=== PATIENT | male | born 1955 | race Caucasian/White ===

== ENCOUNTER 2017-04-27 06:14 | Day surgery (SDC) | payer BC ==
[2017-04-27] VITALS (7 sets, daily range): BP systolic 98–146; BP diastolic 58–89; PULSE 59–70; RESP 18–20; TEMP 97.4–97.8; O2SAT 94–100
[~2017-04-27] VITALS: Ht 170.2 cm; Wt 82.5 kg
[~2017-04-27 06:14] MED LIST: ASPI81 PO; LORT5TAB PO; PRAS10TA PO; PRIN20TA2 PO; ZOCO40TA PO
[2017-04-27] MEDS ORDERED: PLAV75TA29 PO (06:43)
[2017-04-27] MEDS ORDERED: SODIUM CHLOR 0.9% 1000 ML IV SCH (07:00)
[2017-04-27] MEDS ORDERED: SODIUM CHLORIDE 2 ML FLUSH PRN IV FLUSH (07:00)
[2017-04-27] MEDS ORDERED: IMPLANTED VASCULAR ACCESS DEVICE/PORT - SODIUM CHLORIDE FLUSH PRN IV FLUSH (07:00)
[2017-04-27] MEDS ORDERED: IMPLANTED VASCULAR ACCESS DEVICE/PORT - SODIUM CHLORIDE FLUSH IV FLUSH SCH (07:00)
[2017-04-27 08:14] LABS: AUTOMATED NEUTROPHIL # 3.3 TH/MM3 (1.8-7.7); BASOPHIL % 0.5 % (0.0-2.0); EOSINOPHIL # 0.2 TH/MM3 (0-0.4); EOSINOPHIL % 2.9 % (0.0-4.0); HEMATOCRIT 31.2 % (39.0-51.0); LYMPH % 25.5 % (9.0-44.0); LYMPHOCYTE # 1.4 TH/MM3 (1.0-4.8); MEAN CELL VOLUME 71.7 FL (80.0-100.0); MEAN CORPUSCULAR HEMOGLOBIN 22.9 PG (27.0-34.0); MEAN PLATELET VOLUME 7.4 FL (7.0-11.0); MONO % 10.9 % (0.0-8.0); MONOCYTE # 0.6 TH/MM3 (0-0.9); NEUT % 60.2 % (16.0-70.0); PLATELET COUNT 241 TH/MM3 (150-450); RED BLOOD COUNT 4.35 MIL/MM3 (4.50-5.90); RED CELL DISTRIBUTION WIDTH 18.9 % (11.6-17.2); WHITE BLOOD COUNT 5.5 TH/MM3 (4.0-11.0)
[2017-04-27] MEDS ORDERED: MIDAZOLAM HCL 2 MG/2 ML VIAL ONE (08:15)
[2017-04-27] MEDS ORDERED: LIDOCAINE HCL 1% 20 ML VIAL ONE (08:15)
[2017-04-27 08:30] LABS: INTERNATIONAL NORMALIZED RATIO 1.1 RATIO; PROTHROMBIN TIME - PATIENT 10.7 SEC (9.8-11.6)
[2017-04-27] MEDS ORDERED: SODIUM CHLORIDE 2 ML FLUSH BID IV FLUSH SCH (09:00)
--- NOTE | 2017-04-27 13:14 | RADRPT ---
EXAM DATE/TIME: 04/27/2017 08:47 [facility] COMPARISON: CT NEEDLE BIOPSY ABDOMEN, May 09, 2015, 10:12. INDICATIONS : Abdominal mass. SEDATION TIME: 20 minutes BIOPSY SITE: Right upper quadrant. MEDICATION(S): 1.) 4 mg midazolam (Versed) IV 2.) 200 mcg fentanyl (Sublimaze) IV DEVICE(S): 1.) 18 gauge Temno core biopsy needle MEDICAL HISTORY : Carcinoma, hepatocellular. Diverticulitis. Cardiovascular disease. Hypertension. SURGICAL HISTORY : CABG Coronary artery stent. Cholecystectomy. Hepatectomy. ENCOUNTER: Initial ACUITY: 1 day PAIN SCORE: 0/10 LOCATION: Right upper quadrant A total of two core specimen(s) were obtained and sent to the laboratory for pathologic evaluation. PROCEDURE: 1. CT guided abdomen biopsy. Prior to the procedure informed consent was obtained. Any appropriate prior imaging studies were rev iewed. Using automated exposure control and adjustment of the mA and/or kV according to patient size, radiat ion dose was kept as low as reasonably achievable to obtain optimal diagnostic quality images. DICOM format image data is available electronically for review and comparison. The site was prepped in a sterile fashion. Full sterile technique was used, including cap, mask, danni rile gloves and gown and a large sterile sheet. Hand hygiene and 2% chlorhexidine and/or betadine/al cohol prep was utilized per protocol for cutaneous antisepsis. The skin and subcutaneous tissues wer e infiltrated with local anesthetic solution. With CT guidance the previously identified target was localized. Biopsy was performed using the presc ribed needle as above. Adequate hemostasis was obtained with compression at the puncture site. Follow-up CT scan reveals no hemorrhage. The patient tolerated the procedure well and there were no complications. The patient was returned to the Radiology Outpatient Unit in stable condition. CONCLUSION: Uncomplicated CT guided biopsy. Ángel Damico MD on April 27, 2017 at 13:11 Board Certified Radiologist. This report was verified electronically.
== END 2017-04-27 11:30 | disposition home or self-care (01) ==
LOC: HRAD 06:14 → HRIP 06:31 → HRAD 11:30
PROVIDERS: ATTEND Colon & Rectal Surgery
DX: R19.01 Right upper quadrant abdominal swelling, mass and lump (principal); I10 Essential (primary) hypertension; I25.10 Atherosclerotic heart disease of native coronary artery without angina pectoris; C22.9 Malignant neoplasm of liver, not specified as primary or secondary
CPT/HCPCS: 49180; 77012; 85025; 85610; 85730; 88307; 88333; 99152; 99153; J2250; J3010; 88305

== ENCOUNTER 2017-08-09 10:23 | Inpatient (IN) | payer BC ==
[~2017-08-09] VITALS: Ht 170.2 cm; Wt 81.1 kg
[~2017-08-09 10:23] MED LIST changes: +AMIT10TA6 PO; +ASPI1TAB57 PO; -ASPI81 PO; +LISI-519 PO; -LORT5TAB PO; +PLAV75TA29 PO; -PRAS10TA PO; -PRIN20TA2 PO; +SIMV40TA PO; -ZOCO40TA PO
[2017-08-09] MEDS ORDERED: LACTATED RINGER'S 1000 ML IV PRN (11:15)
[2017-08-09] MEDS ORDERED: CHLORHEXIDINE GLUCONATE 2 % 1 PACK (2 CLOTHS) TOPICAL PRN (11:15)
[2017-08-09] MEDS: DEXT 5%-NACL 0.9% 1000 ML INJ 1,000 ML IV SCH ×2 (11:15→19:15)
[2017-08-09] MEDS ORDERED: METOPROLOL TARTRATE 25 MG TAB PO PRN (11:15)
[2017-08-09] MEDS ORDERED: SODIUM CHLORID 0.9% 500 ML IV PRN (11:15)
[2017-08-09] MEDS ORDERED: ALVIMOPAN 12 MG CAPSULE - On Call PO SCH (11:15)
[2017-08-09] MEDS ORDERED: POVIDONE IODINE 5% (ANTISEPSIS KIT) 4 APPLICATIONS EACH NARE PRN (11:15)
[2017-08-09] MEDS ORDERED: METRONIDAZOLE 500 MG/100 ML ISONTONIC SOLN IV SCH (11:15)
[2017-08-09 11:39] LABS: AUTOMATED NEUTROPHIL # 5.9 TH/MM3 (1.8-7.7); BASOPHIL % 0.3 % (0.0-2.0); EOSINOPHIL # 0.1 TH/MM3 (0-0.4); EOSINOPHIL % 1.3 % (0.0-4.0); HEMATOCRIT 37.3 % (39.0-51.0); HEMOGLOBIN 12.3 GM/DL (13.0-17.0); LYMPH % 16.2 % (9.0-44.0); LYMPHOCYTE # 1.4 TH/MM3 (1.0-4.8); MEAN CELL VOLUME 74.8 FL (80.0-100.0); MEAN CORPUSCULAR HEMOGLOBIN 24.8 PG (27.0-34.0); MEAN CORPUSCULAR HGB CONC 33.1 % (32.0-36.0); MEAN PLATELET VOLUME 7.9 FL (7.0-11.0); MONO % 12.4 % (0.0-8.0); MONOCYTE # 1.1 TH/MM3 (0-0.9); NEUT % 69.8 % (16.0-70.0); PLATELET COUNT 341 TH/MM3 (150-450); RED BLOOD COUNT 4.99 MIL/MM3 (4.50-5.90); RED CELL DISTRIBUTION WIDTH 18.4 % (11.6-17.2); WHITE BLOOD COUNT 8.5 TH/MM3 (4.0-11.0)
--- NOTE | 2017-08-09 11:41 | RADRPT ---
EXAM DATE/TIME: 08/09/2017 10:54 [facility] COMPARISON: No previous studies available for comparison. INDICATIONS : Evaluate for pneumothorax, pneumonia or communicable disease. Preop chest for colon surgery today MEDICAL HISTORY : hepatocellular ca, diverticulitis, cardiovascular disease SURGICAL HISTORY : Coronary artery stent. CABG. Cholecystectomy. ENCOUNTER: Initial ACUITY: 1 day PAIN SCORE: 0/10 LOCATION: Bilateral chest FINDINGS: Median sternotomy wires from prior CABG are noted. Heart and mediastinum are otherwise unremarkable. Lungs are well-expanded and clear. Osseous structures are intact. CONCLUSION: 1. No evidence of acute process. 2. Evidence of previous CABG. Aniket Singh MD on August 09, 2017 at 11:38 Board Certified Radiologist. This report was verified electronically.
[2017-08-09 11:48] LABS: INTERNATIONAL NORMALIZED RATIO 1.1 RATIO; PROTHROMBIN TIME - PATIENT 11.1 SEC (9.8-11.6)
[2017-08-09 11:59] LABS: ALT (GPT) 23 U/L (12-78); AST (GOT) 13 U/L (15-37); BLOOD UREA NITROGEN 19 MG/DL (7-18); CALCIUM 8.9 MG/DL (8.5-10.1); CHLORIDE 104 MEQ/L (98-107); CREATININE 1.05 MG/DL (0.60-1.30); GLOMERULAR FILTRATION RATE 72 ML/MIN (>89); GLUCOSE,RANDOM 95 MG/DL (74-106); SODIUM (NA) 140 MEQ/L (136-145)
[2017-08-09] MEDS ORDERED: ROCURONIUM INJ 50 MG/5 ML SYRINGE IV PUSH ONE (12:00)
[2017-08-09] MEDS ORDERED: LIDOCAINE HCL 1% PF 5 ML SYRINGE OTHER ONE (12:00)
[2017-08-09] MEDS ORDERED: NORMOSOL R INJ 1,000 ML IV ONE (12:00)
[2017-08-09] MEDS ORDERED: ONDANSETRON HCL 4 MG/2 ML VIAL IV ONE (12:00)
[2017-08-09] MEDS ORDERED: ceFAZolin 1,000 MG/NS 100 ML IV SCH ×2 (12:00)
[2017-08-09] MEDS ORDERED: DEXAMETHASONE SOD PHOS 4 MG/ML VIAL IV ONE (12:00)
[2017-08-09] MEDS ORDERED: PROPOFOL 200 MG/20 ML AMP IV ONE (12:00)
[2017-08-09] MEDS ORDERED: ceFAZolin INJ 1,000 MG VIAL IV ONE (12:00)
[2017-08-09 12:01] LABS: ALKALINE PHOSPHATASE 70 U/L (45-117); TOTAL BILIRUBIN ADULT 1.2 MG/DL (0.2-1.0); TOTAL PROTEIN 7.7 GM/DL (6.4-8.2)
[2017-08-09] MEDS ORDERED: ACETAMINOPHEN 1000 MG/100 ML 100 ML IV ONE (12:21)
[2017-08-09] MEDS ORDERED: SUGAMMADEX SODIUM 200 MG/2 ML VIAL IV PUSH ONE (13:00)
[2017-08-09] MEDS ORDERED: HYDROmorphone HCL PF 2 MG/ML VIAL ONE (13:00)
--- NOTE | 2017-08-09 15:28 | EKG ---
Date Performed: 08/09/2017 Time Performed: 11:06:15 PTAGE: 62 years EKG: Sinus rhythm NONSPECIFIC T-WAVE ABNORMALITY ABNORMAL ECG Since the PREVIOUS TRACING , no significant change noted PREVIOUS TRACIN05/02/2007 09.52 DOCTOR: Ayaz Snyder Interpretating Date/Time 08/09/2017 15:21:46
[2017-08-09] MEDS ORDERED: ONDANSETRON HCL 4 MG/2 ML VIAL IV PUSH PRN (15:30)
[2017-08-09] MEDS ORDERED: POTASSIUM CHLOR 20 MEQ PREMIX 100 ML IV PRN (15:30)
[2017-08-09] MEDS ORDERED: POTASSIUM CHLOR 40 MEQ PREMIX 100 ML IV PRN (15:30)
[2017-08-09] MEDS ORDERED: SODIUM CHLORIDE 0.9% FLUSH 10 ML FLUSH IV FLUSH PRN (15:30)
[2017-08-09] MEDS ORDERED: BENZOCAINE 6 MG/MENTHOL 10 MG LOZENGE BUCCAL PRN (15:30)
[2017-08-09] MEDS ORDERED: Post-op Orders (for Pharmacy) XX ONE (15:30)
[2017-08-09] MEDS ORDERED: ACETAMINOPHEN/HYDROcodone 325 MG/5 MG TAB PO PRN (15:30)
[2017-08-09] MEDS ORDERED: DO NOT ADM ANY ANTICOAGULANT DRUGS PRN (15:30)
[2017-08-09] MEDS ORDERED: NALOXONE HCL 0.4 MG/ML AMP IV PUSH PRN (15:30)
[2017-08-09] MEDS ORDERED: ENALAPRILAT 1.25 MG/ML VIAL IV PUSH PRN (15:30)
[2017-08-09] MEDS ORDERED: *LABETALOL HCL 100 MG/20 ML VIAL PERIprocedural Use ONLY ONE (15:31)
[2017-08-09] MEDS ORDERED: MIDAZOLAM HCL 2 MG/2 ML VIAL ONE (15:40)
[2017-08-09] MEDS ORDERED: *morphine SULFATE 4 MG/ML PERIprocedure ONLY ONE ×2 (15:45→16:06)
[2017-08-09 16:12] LABS: AUTOMATED NEUTROPHIL # 19.8 TH/MM3 (1.8-7.7); BASOPHIL # 0.1 TH/MM3 (0-0.2); BASOPHIL % 0.2 % (0.0-2.0); EOSINOPHIL % 0.2 % (0.0-4.0); HEMATOCRIT 36.5 % (39.0-51.0); HEMOGLOBIN 11.9 GM/DL (13.0-17.0); LYMPH % 6.5 % (9.0-44.0); LYMPHOCYTE # 1.4 TH/MM3 (1.0-4.8); MEAN CELL VOLUME 76.1 FL (80.0-100.0); MEAN CORPUSCULAR HEMOGLOBIN 24.7 PG (27.0-34.0); MEAN CORPUSCULAR HGB CONC 32.5 % (32.0-36.0); MEAN PLATELET VOLUME 7.6 FL (7.0-11.0); MONO % 4.2 % (0.0-8.0); MONOCYTE # 0.9 TH/MM3 (0-0.9); NEUT % 88.9 % (16.0-70.0); PLATELET COUNT 374 TH/MM3 (150-450); RED CELL DISTRIBUTION WIDTH 17.7 % (11.6-17.2); WHITE BLOOD COUNT 22.2 TH/MM3 (4.0-11.0)
[2017-08-09 16:43] LABS: BICARBONATE 21.1 MEQ/L (21.0-32.0); CALCIUM 8.1 MG/DL (8.5-10.1); CREATININE 1.02 MG/DL (0.60-1.30)
[2017-08-09] MEDS: D5-LR + KCL 20 MEQ INJ 1,000 ML IV SCH (17:42)
[2017-08-09] MEDS: MORPHINE SULFATE 30 MG/30 ML PCA IV SCH (17:45)
--- NOTE | 2017-08-09 18:49 | MP ---
cc: Anjum Prieto MD, James E MD Weiss,Bismark Prather,Gus Leayh MD DATE OF OPERATION: PREOPERATIVE DIAGNOSIS: Intermittent small-bowel obstruction. 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 OPERATIVE PROCEDURE: 1. Exploratory laparotomy, lysis of adhesions. 2. Small bowel resection x 2. 3. Partial omental resection and frozen section biopsy. ANESTHESIA: General endotracheal. SURGEON: Anjum Prieto MD NAIL STICKER: Lawrence Clark MD ESTIMATED BLOOD LOSS: 25 mL OPERATING TIME: 1 hour and 25 minutes. OPERATIVE FINDINGS: This patient is a friend of mine who I have known for many years. He was diagnosed about 10-1/2 years ago with a cholangiocarcinoma of the right anterior right lobe of the liver and underwent a right anterior segmentectomy by Dr. Samuel Martinez. He has been disease free since that time but has had intermittent bouts of abdominal pain and partial small-bowel obstruction, and suspicious areas biopsied over the last 2 years in his right side of his omentum, which have always come back inflammatory in nature. Because of the intermittent obstructions and the suspicious CT scans, after discussion with the patient, laparotomy was decided. At surgery upon opening the abdomen, exploration of the abdomen revealed that the liver was palpably normal. There were adhesions in the right upper quadrant from the previous segmentectomy, and these adhesions were taken down and there was an area of omentum approximately 4-5 cm in size that was thickened and firm and this area was excised and sent for frozen section as it was suspicious for carcinoma. Throughout the small bowel mesentery, there were small 3-5 mm tumor nodules as well as up along the retroperitoneum around the ligament of Treitz. Also, along the left colic gutter, outside of his colon, there were several small metastases. He did have extensive sigmoid colon diverticulosis. No active diverticulitis was present. He was found to have a 2-3 cm nodule, which appeared to be infiltrating the bowel from the mesenteric border of the bowel approximately 6 or 7 cm proximal to the ileocecal valve. About a foot proximal to this was another area of 3 cm metastasis in the antimesenteric border of the bowel causing narrowing of the small bowel at that point, and about 6 inches proximal to that was another area of similar size. The distal small bowel near the terminal ileum was excised with a small resection, probably exercising about 7-8 cm of small bowel and then creating an anastomosis just proximal to the ileocecal valve. The other area resected was approximately 10 inches in length and both areas of metastases were resected together and anastomosis was done. The remainder of the small mesenteric nodules were left in place. There probably numbered 50 or more, and there were no other areas of impending obstruction. OPERATIVE TECHNIQUE: The patient was placed on the table in the supine position. After adequate general endotracheal anesthesia, the abdomen was prepped and draped in the usual manner. A midline incision was made from just below the xiphoid to just above the pubis and taken down through the linea alba, and the peritoneal cavity was entered with the above-mentioned findings. After the Cherri retractor was placed, the small bowel was run from the ligament of Treitz to the terminal ileum, identifying the 3 areas of partial intermittent obstruction. Just proximal to the most distal small-bowel nodule, the bowel was slightly more thickened than the other bowel from chronic intermittent obstruction. Also, the remainder of the exploration of the abdominal cavity was as above with small, under 1 cm nodules present along the small bowel mesentery and back to the retroperitoneal area. There were no other large lesions, other than the metastasis in the right portion of the omentum near the right colic gutter. This was dissected free off of the greater curvature of the stomach and removed and sent for frozen section and permanent section. The frozen section diagnosis came back as cholangiocarcinoma consistent with his original cholangiocarcinoma resected in 04/2007. Next, our attention was turned to the distal lesion of the terminal ileum and just distal to the near obstructing lesion, the small bowel was divided with the Ethicon FORREST 55 stapling device and the mesentery was clamped, cut and ligated, and just proximal to the lesion, the bowel was once again divided with the Ethicon FORREST 55 stapling device. The anastomosis was carried out along the antimesenteric border of the bowel using the Ethicon FORREST 55 stapling device, making the anastomosis just proximal to the ileocecal valve. The opening in the mesentery was approximated with a running 3-0 Vicryl suture, closing the mesentery. About 1 foot proximal to this anastomosis was the other 2 near-obstructing lesions about 6 inches apart and these lesions were resected together excising about a 12 inch segment of his small bowel. The small bowel distal to the most distal lesion and the small bowel just proximal to the most proximal lesion was divided with an Ethicon FORREST 55 stapling device and the mesentery was successively clamped, cut and ligated with 0 Vicryl ligature, and the specimen removed from the table. Next, the anastomosis was carried out along the antimesenteric border of the bowel using Ethicon FORREST stapling device, and the enterotomy was closed with a TX 60 blue staple wide stapling device. The opening in the mesentery was closed with running 3-0 Vicryl suture. Once all of this was done, the anastomoses were pink and under no tension. The blood supply was excellent. Hemostasis was maintained throughout with electrocautery and the bowels were replaced in the abdominal cavity in an chief medical technologist manner. The abdomen was irrigated thoroughly with saline solution, aspirated dry and then the left side of the omentum, which was left over, was brought down over the small bowel after the small bowel was replaced in the abdomen in an chief medical technologist manner, and the abdomen was closed in a single layer using a double-stranded #1 PDS for the linea alba. The subcutaneous tissue was irrigated thoroughly with a liter of saline solution, aspirated dry, and the skin was closed with running 3-0 Vicryl subcuticular suture and a dressing was applied. Sponge, needle and instrument counts were reported as correct. The estimated blood loss was 25 mL. Operating time was 1 hour and 25 minutes. The patient tolerated the procedure well and left the operating room in good condition. MD MAYA Bronson/WILMER , 06:06 PM , 06:47 PM
[2017-08-09] MEDS: ceFAZolin 2 GM PREMIX 50 ML IV SCH (21:10)
[2017-08-09] MEDS: METOCLOPRAMIDE HCL 10 MG/2 ML VIAL IVS SCH ×2 (21:10→23:56)
[2017-08-09] MEDS ORDERED: *ENALAPRILAT 1.25 MG/ML VIAL PERIprocedural Use ONLY ONE (21:23)
[2017-08-09] MEDS: PCA - TOTAL MG MORPHINE DELIVERED PER SHIFT SCH (22:00)
[2017-08-09] MEDS: metroNIDAZOLE 500 MG INJ 100 ML IV SCH (22:00)
[2017-08-09] MEDS: FUROSEMIDE 20 MG/2 ML VIAL IV PUSH SCH (22:20)
[2017-08-09 22:44] VITALS: BP 163/104; PULSE 96; RESP 12; TEMP 97.8
[2017-08-09] MEDS: SODIUM CHLORIDE 0.9% FLUSH 10 ML FLUSH IV FLUSH SCH (22:55)
[2017-08-09 23:00] VITALS: PULSE 105
[2017-08-09 23:31] VITALS: BP 118/70; PULSE 100; RESP 12; TEMP 97.7; O2SAT 99
[2017-08-09] MEDS: KETOROLAC TROMETHAMINE 30 MG/ML (IVP) VIAL IVP PRN (23:56)
[2017-08-10] VITALS (16 sets, daily range): BP systolic 107–133; BP diastolic 61–74; PULSE 72–94; RESP 15–20; TEMP 97.6–98.2; O2SAT 94–99
[2017-08-10] MEDS: MORPHINE SULFATE 30 MG/30 ML PCA IV SCH (02:20)
[2017-08-10] MEDS: DEXT 5%-NACL 0.9% 1000 ML INJ 1,000 ML IV SCH ×3 (02:40→18:34)
[2017-08-10 05:17] LABS: AUTOMATED NEUTROPHIL # 14.3 TH/MM3 (1.8-7.7); HEMATOCRIT 33.2 % (39.0-51.0); HEMOGLOBIN 11.1 GM/DL (13.0-17.0); LYMPH % 2.9 % (9.0-44.0); LYMPHOCYTE # 0.5 TH/MM3 (1.0-4.8); MEAN CELL VOLUME 74.4 FL (80.0-100.0); MEAN CORPUSCULAR HEMOGLOBIN 24.8 PG (27.0-34.0); MEAN CORPUSCULAR HGB CONC 33.3 % (32.0-36.0); MONO % 10.2 % (0.0-8.0); MONOCYTE # 1.7 TH/MM3 (0-0.9); NEUT % 86.9 % (16.0-70.0); PLATELET COUNT 353 TH/MM3 (150-450); RED BLOOD COUNT 4.46 MIL/MM3 (4.50-5.90); RED CELL DISTRIBUTION WIDTH 17.9 % (11.6-17.2); WHITE BLOOD COUNT 16.4 TH/MM3 (4.0-11.0)
[2017-08-10 05:35] LABS: BICARBONATE 29.2 MEQ/L (21.0-32.0); CREATININE 1.05 MG/DL (0.60-1.30)
[2017-08-10] MEDS: ceFAZolin 2 GM PREMIX 50 ML IV SCH ×2 (05:36→12:10)
[2017-08-10] MEDS: METOCLOPRAMIDE HCL 10 MG/2 ML VIAL IVS SCH ×4 (05:36→23:45)
[2017-08-10] MEDS: PCA - TOTAL MG MORPHINE DELIVERED PER SHIFT SCH ×3 (06:00→20:22)
[2017-08-10] MEDS: metroNIDAZOLE 500 MG INJ 100 ML IV SCH ×2 (06:00→13:52)
--- NOTE | 2017-08-10 09:09 | MH ---
cc: Anjum Prieto MD,Bismark Prather,Gus Uribe,Franklyn Nassar MD DATE OF ADMISSION: 08/09/2017 CHIEF COMPLAINT: Intermittent small-bowel obstruction. HISTORY OF PRESENT ILLNESS: This patient is a friend of mine, well known to me for 30 years. The patient developed a cholangiocarcinoma found in March [address] scan. It was a solitary lesion in the right anterior segment of the right lobe of the liver and a right anterior segmentectomy right lobe of the liver, was done by Dr. Samuel Martinez on 05/04/2007. He also had a cholecystectomy en bloc. There was no sign of metastases at that time and resection was complete, it was a cholangiocarcinoma. The patient has been disease free for the last 10 years. About 2 years ago, he had a CT scan for diverticulitis and was found to have some thickening of his omentum in the right upper quadrant and it was suspicious for omental caking. He underwent a needle biopsy at that time, in April 2015 and it came back simply inflammatory tissue. No evidence of carcinoma. At that time, it was about 2.5 cm in size. In March 2017, 2 years later, he underwent another CT scan for diverticulitis and was found to have further enlargement of that same area to about 4 cm in size, again, appearing to be omental caking and suspicious for carcinoma. Again, needle biopsy was done showing only inflammatory tissue. Recently, over the last 6 months, the patient has been developing intermittent abdominal pains which he attributed to diverticulitis, but the CT scans had been negative other than last 01/2017, when he had a bout of diverticulitis. Nevertheless, he ended up in [facility] and had a distal small-bowel obstruction treated conservatively. They did a CT scan over there, which seemed to show some thickening of the terminal ileum and also that right omental caking again. They also felt it was suspicious and when he got out of the hospital there, he came back here for a PET scan that was really equivocal for any uptake. He has had a couple of intermittent bouts of abdominal discomfort and bloating, lasting for about 12 hours and then clearing and for this reason, after a long discussion, we planned on the laparotomy. I discussed this with Dr. Danie Uribe, Dr. Gus Prather and Dr. Dr. Bismark Tomlin. Dr. Tomlin felt that it was unlikely that he had a recurrent cholangiocarcinoma 10 years after the fact. I reviewed all of his MRIs post-hepatectomy for many years, as well as all his CT scans, which were numerous. It seems to show some haziness in this right omental region as far back as 2011, but really 03/2015 and 03/2017, it seemed to enlarge. After discussion regarding laparoscopy versus laparotomy, we elected a laparotomy since it we felt that he would need a resection for whatever was causing his obstruction. We also talked about Crohn's disease, carcinoid of the small bowel. He has had multiple colonoscopies showing only diverticular disease. Past medical history, family history, social history, review of systems is otherwise negative except he did have coronary artery bypass grafting at a young age, in his 40s, and has had stents and is followed by Dr. Gus Prather. 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 PHYSICAL EXAMINATION: GENERAL: Well-developed, well-nourished male looking younger than his age. SKIN: Warm and dry. HEENT: Extraocular muscles intact. NECK: Supple. CHEST: Clear. HEART: S1, S2 is heard. No murmurs or gallops. ABDOMEN: Flat, soft, nontender. No masses. RECTAL: Exam was not done. EXTREMITIES: Range of motion within normal limits. NEUROLOGIC: Grossly normal. IMPRESSION: Intermittent small-bowel obstruction in a patient with a past history of cholangiocarcinoma of the liver, resected 10 years ago, without evidence of recurrence. PLAN: Laparotomy and possible bowel resection if an area of obstruction is found. MD MAYA Bronson/DREA , 05:56 PM , 06:15 PM
[2017-08-10] MEDS: ALVIMOPAN 12 MG CAPSULE - Post-op dosing PO SCH ×2 (09:11→20:19)
[2017-08-10] MEDS: PANTOPRAZOLE SODIUM 40 MG VIAL IVP SCH (09:12)
[2017-08-10] MEDS: FUROSEMIDE 20 MG/2 ML VIAL IV PUSH SCH ×2 (09:12→20:19)
[2017-08-10] MEDS: SODIUM CHLORIDE 0.9% FLUSH 10 ML FLUSH IV FLUSH SCH ×2 (09:13→20:24)
[2017-08-10] MEDS: D5-LR + KCL 20 MEQ INJ 1,000 ML IV SCH ×3 (09:16→20:22)
--- NOTE | 2017-08-10 09:18 | HHI.PR ---
Subjective Remarks No N or V. No BMs. Pain controlled. Discussed findings again with Roseann.Dr Tomlin saw pt this AM. Objective Vital Signs Date Time Temp Pulse Resp B/P (MAP) Pulse Ox O2 Delivery O2 Flow Rate FiO2 08/10/17 08:00 72 08/10/17 07:00 79 08/10/17 07:00 97.7 84 19 133/74 (93) 99 08/10/17 06:00 12 08/10/17 04:00 86 08/10/17 03:38 98.0 91 15 109/70 (83) 98 08/10/17 03:00 89 08/10/17 02:20 15 08/10/17 02:00 90 08/10/17 01:00 94 08/10/17 00:00 93 08/09/17 23:31 97.7 100 12 118/70 (86) 99 08/09/17 23:00 105 08/09/17 22:44 97.8 96 12 163/104 (123) 08/09/17 22:30 93 16 136/73 (94) 94 Room Air 08/09/17 22:00 93 16 137/75 (95) 94 Room Air 08/09/17 22:00 12 08/09/17 21:40 Room Air 08/09/17 21:00 97.7 100 12 137/75 (95) 93 Room Air 08/09/17 19:00 96 16 163/80 (107) 96 Nasal Cannula 2 08/09/17 17:45 12 08/09/17 17:00 73 16 161/73 (102) 98 Nasal Cannula 2 08/09/17 16:45 82 16 161/81 (107) 93 Nasal Cannula 2 08/09/17 16:30 89 16 163/87 (112) 94 Nasal Cannula 2 08/09/17 16:15 85 16 177/91 (119) 98 Nasal Cannula 2 08/09/17 16:00 82 16 164/77 (106) 98 Nasal Cannula 2 08/09/17 15:45 82 16 164/77 (106) 98 Nasal Cannula 2 08/09/17 15:30 97.7 92 16 186/84 (118) 99 Nasal Cannula 3 I/O 08/09/17 08/09/17 08/09/17 08/10/17 08/10/17 08/10/17 07:00 15:00 23:00 07:00 15:00 23:00 Intake Total 3500 ml 2050 ml Output Total 500 ml 1450 ml Balance 3000 ml 600 ml Intake IV Total 3500 ml 2050 ml Output Urine Total 470 ml 1450 ml Estimated Blood Loss 30 ml # Bowel Movements 0 Result Diagram: 08/10/1740508/10/17405 Objective Remarks VS-S Abd: flat,soft,dressing dry I&Os and labs OK Assessment and Plan Assessment and Plan Stable POD#1 IV to 100/hr,continue I&Os, Continue OOB. 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 Anjum Prieto MD Aug 10, 2017 09:18
[2017-08-10] MEDS: KETOROLAC TROMETHAMINE 30 MG/ML (IVP) VIAL IVP PRN (12:10)
[2017-08-10] MEDS: HEPARIN SODIUM - SQ 10,000 UNITS/ML VIAL SQ SCH (16:05)
[2017-08-10] MEDS ORDERED: ALVIMOPAN 12 MG CAPSULE PO SCH (21:00)
[2017-08-11] VITALS: BP 129/62; PULSE 83; RESP 20; TEMP 98; O2SAT 93
[2017-08-11] MEDS: HEPARIN SODIUM - SQ 10,000 UNITS/ML VIAL SQ SCH ×2 (03:00→15:41)
[2017-08-11] MEDS: DEXT 5%-NACL 0.9% 1000 ML INJ 1,000 ML IV SCH ×2 (03:15→07:39)
[2017-08-11] MEDS: MORPHINE SULFATE 30 MG/30 ML PCA IV SCH (04:57)
[2017-08-11] MEDS: METOCLOPRAMIDE HCL 10 MG/2 ML VIAL IVS SCH ×3 (04:58→17:06)
[2017-08-11] MEDS: PCA - TOTAL MG MORPHINE DELIVERED PER SHIFT SCH (04:59)
[2017-08-11] MEDS: SODIUM CHLORIDE 0.9% FLUSH 10 ML FLUSH IV FLUSH SCH ×2 (07:39→19:49)
[2017-08-11] MEDS: D5-LR + KCL 20 MEQ INJ 1,000 ML IV SCH ×2 (08:23→15:40)
[2017-08-11] MEDS: FUROSEMIDE 20 MG/2 ML VIAL IV PUSH SCH ×2 (08:23→19:45)
[2017-08-11] MEDS: ALVIMOPAN 12 MG CAPSULE - Post-op dosing PO SCH ×2 (08:24→19:43)
[2017-08-11 08:49] VITALS: BP 158/72; PULSE 92; RESP 14; TEMP 97.5; O2SAT 98
[2017-08-11 08:58] LABS: BACTERIA, URINE RARE /hpf; BILIRUBIN, URINE NEG (NEG); BLOOD, URINE NEG (NEG); GLUCOSE,URINE NEG (NEG); KETONE, URINE NEG (NEG); MUCUS URINE FEW /lpf (OCC); NITRITE,URINE NEG (NEG); PH, URINE 8.5 (5.0-8.5); URINE COLOR LIGHT-YELLOW (YELLW/STRAW); URINE LEUKOCYTE ESTERASE MOD (NEG)
[2017-08-11 09:09] LABS: AUTOMATED NEUTROPHIL # 9.9 TH/MM3 (1.8-7.7); BASOPHIL % 0.2 % (0.0-2.0); EOSINOPHIL # 0.2 TH/MM3 (0-0.4); EOSINOPHIL % 1.2 % (0.0-4.0); HEMATOCRIT 33.5 % (39.0-51.0); HEMOGLOBIN 10.8 GM/DL (13.0-17.0); LYMPH % 11.4 % (9.0-44.0); LYMPHOCYTE # 1.5 TH/MM3 (1.0-4.8); MEAN CELL VOLUME 76.1 FL (80.0-100.0); MEAN CORPUSCULAR HEMOGLOBIN 24.6 PG (27.0-34.0); MEAN CORPUSCULAR HGB CONC 32.3 % (32.0-36.0); MEAN PLATELET VOLUME 7.8 FL (7.0-11.0); MONO % 9.2 % (0.0-8.0); MONOCYTE # 1.2 TH/MM3 (0-0.9); PLATELET COUNT 313 TH/MM3 (150-450); WHITE BLOOD COUNT 12.8 TH/MM3 (4.0-11.0)
--- NOTE | 2017-08-11 09:20 | MB ---
cc: Bismark Tomlin MD DATE: 08/10/2017 REASON FOR CONSULTATION: Intraabdominal carcinomatosis from what appears to be recurrent cholangiocarcinoma. PATIENT PROFILE: The patient is a 62-year-old male. He is and has 3 children, 2 sons and a daughter. He was born in [place], [place]. 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 He does not smoke. He has not had any alcohol in 12 years. In the past, he drank moderately. He does not smoke. HISTORY OF PRESENT ILLNESS: The patient is a 62-year-old male whose history dates back to 03/21/2007, when he had a needle biopsy of a nodule in the liver, which revealed an adenocarcinoma. The staining pattern suggested a carcinoma of pancreaticobiliary origin or cholangiocarcinoma. Ultimately, it was felt to be consistent with a cholangiocarcinoma. He had a single nodule. On 05/04/2007, the patient had a wedge resection of the liver, removing the anterior portion of the right lobe of the liver with the attached gallbladder. The tumor was removed in its entirety. There was no evidence of disease elsewhere and the pathology was felt to be consistent with a cholangiocarcinoma. The patient required no postoperative treatment. Last time I saw this gentleman was 04/19/2012. The plan was for the patient to have radiographic studies of the liver yearly. His immediate problem dates back to the past 2 or 3 years, when he developed episodic abdominal pain. He has had a number of radiographic studies. On 04/21/2017, he had a CT scan of the abdomen and pelvis and was found to have new patchy soft tissue densities in the mesentery along the right lateral mid abdomen of concern for mesenteric metastases. There was wall thickening and mild inflammatory changes involving the distal small bowel. The liver showed no evidence of metastatic disease. On 07/13/2017, the patient had a PET/CT scan. There was no abnormal FDG uptake within the mesenteric densities and a followup PET/CT was recommended in 3-6 months. The patient also had a CT-guided needle biopsy of one of the abdominal masses on 04/27/2017, which showed no evidence of malignancy, as well as on 05/09/2015. Approximately 4 weeks ago, he developed abdominal pain and had a bowel obstruction. This occurred in [place], [place]. He required an NG tube and the obstruction resolved. He returned to this area and has been undergoing further investigation by Dr. Prieto, who is his colorectal surgeon and Franklyn Thompson, who is his primary care physician. A decision was made to do an exploratory laparotomy for intermittent small bowel obstruction. The operative procedure was an exploratory laparotomy, lysis of adhesions, small bowel resection x 2 and partial omental resection and frozen section biopsy. At the time of surgery, the liver was normal. There was an area of omentum measuring 5 cm, which was firm and thickened and sent for frozen section. The final path report is not back, but apparently it was felt to be consistent with recurrent cholangiocarcinoma. The small bowel mesentery contained multiple 3-5 mm tumor nodules. There were several metastases along the left colic gutter. There was a 3 cm nodule infiltrating the bowel from the mesenteric border as well as a second one proximal to this. The distal small bowel was excised to prevent obstruction. Surgery was performed on 08/09/2017 and the patient is recovering now in the intensive care unit. PAST SURGICAL HISTORY: 1. 05/04/2007, excision of right anterior segment, right lobe of liver, with cholecystectomy for cholangiocarcinoma. 2. 03/17/2003, coronary artery bypass surgery grafting by Dr. Perez. 3. Tonsillectomy. 4. Coronary stent placement by Dr. Prather on 3 occasions, last one 2015. PAST MEDICAL HISTORY: 1. Hypertension. 2. Coronary artery disease with coronary artery bypass surgery grafting and placement of coronary stents x 3 occasions. 3. Elevated cholesterol. 4. Diverticular disease. MEDICATIONS PRIOR TO ADMISSION: 1. Amitriptyline 10 mg p.o. at bedtime p.r.n. sleep. 2. Aspirin 81 mg a day. 3. Plavix 75 mg a day. 4. Lisinopril 5 mg p.o. b.i.d. 5. Simvastatin 40 mg a day. ALLERGIES: PENICILLIN. FAMILY HISTORY: Father is living and has coronary artery disease. Mother of Alzheimer's. The patient has a sister who is well. REVIEW OF SYSTEMS: HEENT: No problems with vision. Hearing slightly decreased. PULMONARY: No chest pain or palpitations. No shortness of breath or cough. GASTROINTESTINAL: Has recent abdominal pain, bowel obstruction and an approximately 7-pound weight loss. GENITOURINARY: No dysuria, frequency, hematuria. MUSCULOSKELETAL: No bone pain. NEUROLOGIC: No weakness. No history of depression, mild anxiety. PHYSICAL EXAMINATION: GENERAL: Reveals a male who is postop. He has a binder over the abdomen. He otherwise appears well. VITAL SIGNS: Blood pressure is 115/60, respiratory rate 18, pulse is 80, afebrile, O2 saturation 95%. HEENT: Head is normocephalic. Sclerae and conjunctivae normal. Oropharynx unremarkable. LYMPHATICS: There is no cervical, supraclavicular, axillary or inguinal adenopathy. HEART: Regular rhythm. LUNGS: Clear. ABDOMEN: Without hepatosplenomegaly or masses. The patient has a binder over the abdomen from the recent surgery, it was not removed. EXTREMITIES: Trace edema. MUSCULOSKELETAL: No bone pain. NEUROLOGIC: No weakness. SKIN: Intact. ASSESSMENT: The patient is a 62-year-old male who had an adenocarcinoma resected from the liver on 03/21/2007, felt to be consistent with a primary cholangiocarcinoma. We are now in excess of 10 years later and I am told that his pathology is consistent with recurrent cholangiocarcinoma. I have spoken with Dr. Prieto, who performed the surgery and, unfortunately, this gentleman has diffuse peritoneal disease, although, at this point, the volume of disease may not be great. What is remarkable is that the disease pursued an enormously indolent course. If this in fact represents the original disease from 10 years ago, then the time span suggests that it is a slowly progressive disease, independent of any intervention, which would be welcomed. PLAN: 1. Await path report. 2. I will offer him systemic therapy. The most common regimen to treat cholangiocarcinoma in patients with good performance status is cisplatin plus gemcitabine, which has been shown to be superior to single agent gemcitabine. The standard treatment is cisplatin 25 mg day 1 and gemcitabine 1000 mg/m2 day 1, 8 and occasionally day 15. Response rates are modest. I believe that the outcome will be more affected by the biology of his disease than the available treatments. At the same time, I will strongly advise treatment, followed by observation. Once he has recovered, I will do a CT scan of the abdomen and pelvis to see if there is any residual measurable disease. Even if there is no measurable disease, I woul recommend 6 cycles of chemotherapy followed by observation. MD AMAYA Daniel/DREA , 06:45 PM , 07:29 PM [facility]
[2017-08-11 10:00] LABS: BICARBONATE 30.9 MEQ/L (21.0-32.0); CALCIUM 8.6 MG/DL (8.5-10.1); CREATININE 1.22 MG/DL (0.60-1.30)
[2017-08-11 11:31] VITALS: BP 147/75; PULSE 85; RESP 18; TEMP 97.9; O2SAT 93
[2017-08-11] MEDS: PANTOPRAZOLE SODIUM 40 MG VIAL IVP SCH (11:41)
[2017-08-11] MEDS: KETOROLAC TROMETHAMINE 30 MG/ML (IVP) VIAL IVP PRN ×2 (11:42→21:35)
--- NOTE | 2017-08-11 13:16 | HHI.PR ---
Subjective Remarks No N or V. No BMs. 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 Objective Vital Signs Date Time Temp Pulse Resp B/P (MAP) Pulse Ox O2 Delivery O2 Flow Rate FiO2 08/11/17 11:31 97.9 85 18 147/75 (99) 93 08/11/17 08:49 97.5 92 14 158/72 (100) 98 08/11/17 04:57 20 08/11/17 00:00 98.0 83 20 129/62 (84) 93 08/10/17 20:22 20 08/10/17 20:00 98.0 76 20 130/68 (88) 94 08/10/17 16:00 97.8 81 17 125/63 (83) 98 08/10/17 15:00 98.2 82 19 115/61 (79) 95 08/10/17 13:55 17 I/O 08/10/17 08/10/17 08/10/17 08/11/17 08/11/17 08/11/17 07:00 15:00 23:00 07:00 15:00 23:00 Intake Total 2050 ml 650 ml 660 ml Output Total 1450 ml 1250 ml Balance 600 ml 650 ml -590 ml Intake IV Total 2050 ml 650 ml 660 ml Output Urine Total 1450 ml 1250 ml # Bowel Movements 0 Result Diagram: 08/11/1741 08/11/17840 Objective Remarks VS-S Abd: flat,soft,incision clean I&Os and labs OK Assessment and Plan Assessment and Plan Stable POD#2 IV to 100/hr,continue I&Os, Continue OOB. SAHRA. Anjum Prieto MD Aug 11, 2017 13:16
[2017-08-11 16:00] VITALS: BP 129/72; PULSE 80; RESP 18; TEMP 98.3; O2SAT 93
[2017-08-11] MEDS: ACETAMINOPHEN/HYDROcodone 325 MG/5 MG TAB PO PRN (19:43)
[2017-08-11 20:00] VITALS: BP 162/86; PULSE 81; RESP 20; TEMP 98.3; O2SAT 96
[2017-08-11] MEDS: ZOLPIDEM TARTRATE 5 MG TAB PO PRN (21:37)
[2017-08-12] VITALS: BP 127/72; PULSE 92; RESP 20; TEMP 97.9; O2SAT 96
[2017-08-12] MEDS: METOCLOPRAMIDE HCL 10 MG/2 ML VIAL IVS SCH ×5 (00:35→23:02)
[2017-08-12] MEDS: D5-LR + KCL 20 MEQ INJ 1,000 ML IV SCH ×2 (04:00→13:19)
[2017-08-12] MEDS: ACETAMINOPHEN/HYDROcodone 325 MG/5 MG TAB PO PRN ×5 (04:48→23:02)
[2017-08-12] MEDS: HEPARIN SODIUM - SQ 10,000 UNITS/ML VIAL SQ SCH ×2 (04:49→13:19)
[2017-08-12] MEDS: KETOROLAC TROMETHAMINE 30 MG/ML (IVP) VIAL IVP PRN ×2 (07:27→14:37)
[2017-08-12 08:00] VITALS: BP 149/88; PULSE 82; RESP 17; TEMP 97.8; O2SAT 95
[2017-08-12] MEDS: ALVIMOPAN 12 MG CAPSULE - Post-op dosing PO SCH ×2 (09:04→20:50)
[2017-08-12] MEDS: FUROSEMIDE 20 MG/2 ML VIAL IV PUSH SCH (09:04)
[2017-08-12] MEDS: SODIUM CHLORIDE 0.9% FLUSH 10 ML FLUSH IV FLUSH SCH ×2 (09:04→20:50)
[2017-08-12] MEDS: PANTOPRAZOLE SODIUM 40 MG VIAL IVP SCH (09:05)
[2017-08-12 12:00] VITALS: BP 129/79; PULSE 92; RESP 17; TEMP 97.6; O2SAT 92
--- NOTE | 2017-08-12 17:38 | HHI.PR ---
Subjective Remarks POD#3 s/p resection comfortable Objective Vital Signs Date Time Temp Pulse Resp B/P (MAP) Pulse Ox O2 Delivery O2 Flow Rate FiO2 08/12/17 12:00 97.6 92 17 129/79 (96) 92 08/12/17 08:00 97.8 82 17 149/88 (108) 95 08/12/17 00:36 20 08/12/17 00:00 97.9 92 20 127/72 (90) 96 08/11/17 21:49 20 08/11/17 20:00 98.3 81 20 162/86 (111) 96 I/O 08/11/17 08/11/17 08/11/17 08/12/17 08/12/17 08/12/17 07:00 15:00 23:00 07:00 15:00 23:00 Intake Total 1640 ml Output Total 1000 ml 800 ml Balance 640 ml -800 ml Intake Oral 740 ml IV Total 900 ml Output Urine Total 1000 ml 800 ml Result Diagram: 08/11/17 0841 08/11/17 0841 Objective Remarks Abdomen soft, nondistended, tender Wound clean Assessment and Plan Assessment and Plan Await bowel function Home soon Leticia Antunez MD Aug 12, 2017 17:38
[2017-08-12 20:00] VITALS: BP 137/75; PULSE 77; RESP 18; TEMP 98.3; O2SAT 97
[2017-08-12] MEDS: ZOLPIDEM TARTRATE 5 MG TAB PO PRN (23:01)
[2017-08-13] VITALS: BP 138/78; PULSE 76; RESP 18; TEMP 97.6; O2SAT 96
[2017-08-13] MEDS: D5-LR + KCL 20 MEQ INJ 1,000 ML IV SCH (01:32)
[2017-08-13] MEDS: ACETAMINOPHEN/HYDROcodone 325 MG/5 MG TAB PO PRN (03:24)
[2017-08-13] MEDS: HEPARIN SODIUM - SQ 10,000 UNITS/ML VIAL SQ SCH (03:26)
[2017-08-13] MEDS: METOCLOPRAMIDE HCL 10 MG/2 ML VIAL IVS SCH ×2 (06:24→12:00)
[2017-08-13 08:00] VITALS: BP 135/86; PULSE 79; RESP 15; TEMP 98; O2SAT 96
[2017-08-13] MEDS: SODIUM CHLORIDE 0.9% FLUSH 10 ML FLUSH IV FLUSH SCH (09:00)
[2017-08-13] MEDS: ALVIMOPAN 12 MG CAPSULE - Post-op dosing PO SCH (10:49)
[2017-08-13] MEDS: PANTOPRAZOLE SODIUM 40 MG VIAL IVP SCH (10:50)
--- NOTE | 2017-08-13 11:22 | HHI.PR ---
Subjective Remarks POD#4 s/p resection comfortable, ready to go home Objective Vital Signs Date Time Temp Pulse Resp B/P (MAP) Pulse Ox O2 Delivery O2 Flow Rate FiO2 08/13/17 08:00 98.0 79 15 135/86 (102) 96 08/13/17 00:00 97.6 76 18 138/78 (98) 96 08/12/17 20:00 98.3 77 18 137/75 (95) 97 08/12/17 12:00 97.6 92 17 129/79 (96) 92 I/O 08/12/17 08/12/17 08/12/17 08/13/17 08/13/17 08/13/17 07:00 15:00 23:00 07:00 15:00 23:00 Intake Total 360 ml Output Total 800 ml Balance -800 ml 360 ml Intake Oral 360 ml Output Urine Total 800 ml # Voids 2 # Bowel Movements 0 Result Diagram: 08/11/17 0841 08/11/17 0841 Objective Remarks Abdomen soft, nondistended, tender Wound clean Assessment and Plan Assessment and Plan Positive bowel function Home today Followup with Dr. Prieto 3 weeks Leticia Antunez MD Aug 13, 2017 11:22
[2017-08-13] MEDS ORDERED: HYDR-3516 PO (11:23)
[2017-08-13 12:00] VITALS: BP 135/80; PULSE 95; RESP 16; TEMP 97.1; O2SAT 96
== END 2017-08-13 13:12 | disposition home or self-care (01) | DRG 345 ==
LOC: HSDI 10:23 → HCPC 22:37 → N07A 08-10 15:28
PROVIDERS: ADMIT Colon & Rectal Surgery; ATTEND Colon & Rectal Surgery
PROC: 0DBU0ZZ Excision of Omentum, Open Approach (ICD-10-PCS; 2017-08-09)
PROC: 0DB80ZX Excision of Small Intestine, Open Approach, Diagnostic (ICD-10-PCS; principal; 2017-08-09 13:08)
DX: C78.4 Secondary malignant neoplasm of small intestine (principal); C22.1 Intrahepatic bile duct carcinoma; C78.6 Secondary malignant neoplasm of retroperitoneum and peritoneum; I10 Essential (primary) hypertension; K57.30 Diverticulosis of large intestine without perforation or abscess without bleeding; I25.10 Atherosclerotic heart disease of native coronary artery without angina pectoris; Z88.0 Allergy status to penicillin; Z95.1 Presence of aortocoronary bypass graft
CPT/HCPCS: 71045; 80048; 80053; 81001; 85025; 85610; 85730; 86850; 86900; 86901; 87086; 88305; 88307; 88309; 88331; 93005; 94150; C9113; J0131; J0690; J1100; J1170; J1644; J1885; J1940; J2250; J2270; J2405; J2765; J3010; J3480; J7120

== ENCOUNTER 2017-10-05 06:14 | Day surgery (SDC) | payer BC ==
[~2017-10-05] VITALS: Ht 170.2 cm; Wt 76.4 kg
[~2017-10-05 06:14] MED LIST changes: +HYDR-3516 PO
[2017-10-05 06:55] VITALS: BP 123/84; PULSE 68; RESP 20; TEMP 97.5; O2SAT 98
[2017-10-05] MEDS ORDERED: CHLORHEXIDINE GLUCONATE 2 % 1 PACK (2 CLOTHS) TOPICAL SCH (07:15)
[2017-10-05] MEDS ORDERED: VANCOMYCIN 1000 MG/NS 250 ML - implanted port/tunneled catheter IV SCH ×2 (07:15)
[2017-10-05] MEDS ORDERED: POVIDONE IODINE 5% (ANTISEPSIS KIT) 4 APPLICATIONS EACH NARE SCH (07:15)
[2017-10-05] MEDS ORDERED: SODIUM CHLORIDE 0.9% 1000 ML IV SCH (07:15)
[2017-10-05 07:28] LABS: PROTHROMBIN TIME - PATIENT 10.3 SEC (9.8-11.6)
[2017-10-05] MEDS ORDERED: LIDOCAINE 1%/EPINEPHrine 1:100,000 SOLN 20 ML VIAL ONE (07:39)
[2017-10-05] MEDS ORDERED: fentaNYL CITRATE 250 MCG/5 ML AMP ONE (08:06)
[2017-10-05] MEDS ORDERED: MIDAZOLAM HCL 5 MG/5 ML VIAL ONE (08:06)
[2017-10-05] MEDS ORDERED: ceFAZolin 2 GM PREMIX 50 ML ONE (08:43)
[2017-10-05] MEDS ORDERED: SODIUM CHLORIDE 0.9% FLUSH 10 ML FLUSH IVF PRN (09:00)
--- NOTE | 2017-10-05 09:01 | PD.RAD ---
Post Procedure Progress Note Pre Procedure Diagnosis: (1) Colon cancer metastasized to liver Post Procedure Diagnosis: (1) Colon cancer metastasized to liver Procedure Date: Oct 05, 2017 Supervising Radiologist: Jairo Menchaca Estimated blood loss: 3cc Anesthesia: Local, Conscious Sedation Plan of Activity Patient to Unit: ROPU Patient Condition: Good Additional Comments: Port placed via the Left IJ Catheter in good position Ok for use See PACS Report for procedural detail/treatment Jairo Menchaca MD Oct 05, 2017 09:01
[2017-10-05 09:10] VITALS: BP 118/74; PULSE 84; RESP 18; TEMP 97.6; O2SAT 96
[2017-10-05 09:25] VITALS: BP 108/64; PULSE 77; RESP 18; O2SAT 98
[2017-10-05 09:55] VITALS: BP 103/58; PULSE 72; RESP 18; O2SAT 98
[2017-10-05 10:25] VITALS: BP 114/63; PULSE 74; RESP 18; O2SAT 96
[2017-10-05 10:55] VITALS: BP 122/67; PULSE 76; RESP 18; O2SAT 98
--- NOTE | 2017-10-05 16:07 | RADRPT ---
EXAM DATE: 10/05/2017 9:21 AM EDT AGE/SEX: 62 years / Male INDICATIONS: Patient presents with colon cancer in need of port placement for treatment. CLINICAL DATA: This is the patient's initial encounter. Patient reports that signs and symptoms have been present for 2 months and indicates a pain score of 0/10. MEDICAL/SURGICAL HISTORY: Carcinoma, colon. Diverticulitis. Hypertension. CADHigh Cholestero lAnemia . Abdomen mass BxSmall bowel resectionOmental resectionCABGHeart Stent COMPARISON: No prior exams available for comparison. FLUORO TIME (min): 1 IMAGE SERIES: SEDATION TIME (min): 30 MEDICATION(S): 5mg midazolam (Versed) IV 250mcg fentanyl (Sublimaze) IV DEVICE(S): Left 8F Infuse a port . . PROCEDURE : 1. Continuous pulse oximetry and EKG monitoring. 2. Intravenous conscious sedation. 3. Ultrasound guidance for venous access. 4. Fluoroscopic guided implantable central venous port placement. The patient was placed supine. The neck was prepped in sterile fashion. Full sterile technique was u sed, including cap, mask, sterile gloves and gown, and a large sterile sheet. Hand hygiene and 2% ch lorhexidine Betadine was utilized per protocol for cutaneous antisepsis with appropriate dry time for site. Sterile gel and sterile probe cover were utilized for ultrasound guidance. The skin and sub cutaneous tissues were infiltrated with local anesthetic solution. Under direct ultrasound guidance, the left internal jugular vein was accessed. The ultrasound images depicting access guidance were stored and saved to PACS for permanent record. A subcutaneous pocket was created using blunt dissection. The port was introduced to the pocket. The catheter tubing was fed through a subcutaneous tunnel to the venotomy site. The catheter tubing was cut to a suitable l ength and then was introduced through a valved Peel-Away sheath and positioned with catheter tubing t ip at the cavo-atrial junction level. The pocket incision was closed with subcuticular Vicryl suture . Steri-Strips were applied. The port was flushed and locked with heparin solution per protocol. S terile dressing was applied to the site. The patient tolerated the procedure well. Conscious sedation was performed with the prescribed dosages and duration as above in the presence of an independent trained radiology nurse to assist in the monitoring of the patient. EKG and oximetry remained stable throughout the procedure. The patient tolerated the procedure well and there were no complications. The patient was sent to post anesthesia recovery in stable condition. CONCLUSION: 1. Uncomplicated ultrasound and fluoroscopic guided implanted central venous port catheter placement as described in detail above. An 8 [employer] port was placed. Electronically signed by: Jairo Menchaca MD 10/05/2017 3:49 PM EDT
== END 2017-10-05 11:10 | disposition home or self-care (01) ==
LOC: HRIP 06:14 → HROP 06:14
PROVIDERS: ATTEND Internal Medicine Hematology & Oncology
DX: Z45.2 Encounter for adjustment and management of vascular access device (principal); C78.7 Secondary malignant neoplasm of liver and intrahepatic bile duct; C18.9 Malignant neoplasm of colon, unspecified; I10 Essential (primary) hypertension
CPT/HCPCS: 36561; 76937; 77001; 85610; 85730; 99152; 99153; C1788; J0690; J1642; J2250; J3010; J3370; J7030; J7050